=== PATIENT | female | born 1995 | race African-American/Black ===

== ENCOUNTER 2020-12-21 01:55 | Emergency (ER) | payer MEDICAID, OTHER ==
[2020-12-21 02:22] LABS: #Eosinphils 0.1 thou/uL (0.0-0.7); #Lymphocytes 2.3 thou/uL (1.20-3.40); #Monocytes 0.5 thou/uL (0.11-0.59); #Neutrophils 7.3 thou/uL (1.40-6.50); %Basophils 0.3 % (0.0-1.0); %Eosinophils 0.7 % (0.0-10.0); %Lymphocytes 22.8 % (21.0-51.0); %Neutrophils 71.4 % (42.0-75.0); Hemoglobin 10.9 g/dL (12.0-16.0); Mean Corpuscular HGB CONC 31.2 g/dL (32.0-36.0); Mean Corpuscular Hemoglobin 21.8 pg (27.0-31.0); Mean Platelet Volume 8.8 fL (7.4-10.4); Platelet Count 305 thou/uL (130-400); RBC Distribution Width 15.2 % (11.5-14.5); White Blood Cell (WBC) Count 10.3 thou/uL (4.8-10.8)
[2020-12-21 02:27] LABS: PTT 31.3 sec (22.9-36.1); Prothrombin Time 13.6 sec (12.0-14.7)
[2020-12-21 02:40] LABS: Hypochromia SLIGHT = 6-15 cells (100X) (0-5/hpf); MDiff Complete? YES; Microcytosis SLIGHT = 6-15 cells (100X) (0-5/hpf); Platelet Morphology Comment Appears Adequate
[2020-12-21 02:45] LABS: ALT (SGPT) 17 U/L (8-55); AST (SGOT) 18 U/L (5-34); Alkaline Phosphatase 85 U/L (40-110); Anion Gap 16 mmol/L (10-20); BUN (Urea Nitrogen) 10 mg/dL (7.0-18.7); Bilirubin, Total 0.2 mg/dL (0.2-1.2); Calc. Creatinine Clearance 0 mL/min (70-130); Calcium 8.9 mg/dL (7.8-10.44); Carbon Dioxide 20 mmol/L (22-29); Chloride 103 mmol/L (98-107); Globulin 4.3 g/dL (2.4-3.5); Glucose 131 mg/dL (70-105); Potassium 3.5 mmol/L (3.5-5.1); Protein, Total 8.3 g/dL (6.0-8.3); Sodium 135 mmol/L (136-145)
[2020-12-21] MEDS ORDERED: Boostrix 0.5 ML (Tdap) VIAL ONE (03:07)
[2020-12-21] MEDS ORDERED: Bacitracin 1 PK ONE (03:59)
== END 2020-12-21 04:05 | disposition home or self-care (01) ==
LOC: ERS 01:55
DX: S21.231A Puncture wound without foreign body of right back wall of thorax without penetration into thoracic cavity, initial encounter (principal); I10 Essential (primary) hypertension; E11.9 Type 2 diabetes mellitus without complications; Z23 Encounter for immunization; W34.00XA Accidental discharge from unspecified firearms or gun, initial encounter
CPT/HCPCS: 71045; 80053; 83605; 85025; 85610; 85730; 90471; 90715; 94760

== ENCOUNTER 2021-01-30 11:41 | Emergency (ER) | payer OTHER ==
[2021-01-30] MEDS ORDERED: Ibuprofen 800 MG TAB ONE (12:12)
[2021-01-30 15:33] LABS: SARS-CoV-2 PCR by NAA DETECTED (NotDetected)
== END 2021-01-30 13:37 | disposition home or self-care (01) ==
LOC: ERS 11:41
DX: U07.1 COVID-19 (principal); E11.9 Type 2 diabetes mellitus without complications; I10 Essential (primary) hypertension; Z79.84 Long term (current) use of oral hypoglycemic drugs; Z79.899 Other long term (current) drug therapy
CPT/HCPCS: 87635; 87804; 99283; U0003; U0005

== ENCOUNTER 2021-02-02 10:57 | Emergency (ER) | payer OTHER ==
[2021-02-02] MEDS ORDERED: Albuterol 200 PUFF (6.7GM INHALER) ONE (11:58)
== END 2021-02-02 13:33 | disposition home or self-care (01) ==
LOC: ERS 10:57
DX: U07.1 COVID-19 (principal); E11.9 Type 2 diabetes mellitus without complications; I10 Essential (primary) hypertension; Z79.84 Long term (current) use of oral hypoglycemic drugs; Z79.899 Other long term (current) drug therapy
CPT/HCPCS: 71045; 93005

== ENCOUNTER 2024-09-03 08:20 | Emergency (ER) | payer OTHER ==
[2024-09-03] MEDS ORDERED: Acetaminophen 500 MG TAB ONE (09:28)
[2024-09-03] MEDS ORDERED: Albuterol 200 PUFF (6.7GM INHALER) ONE (09:49)
[2024-09-03 09:53] LABS: #Basophils 0.04 10x3/uL (0.0-0.2); %Basophils 0.3 % (0.0-1.0); %Eosinophils 3.4 % (0.0-10.0); %Lymphocytes 19.2 % (21.0-51.0); %Monocytes 7.2 % (0.0-10.0); %Neutrophils 69.4 % (42.0-75.0); Hematocrit 30.8 % (36.0-47.0); Hemoglobin 9.4 g/dL (12.0-16.0); Mean Corpuscular HGB CONC 30.5 g/dL (32.0-36.0); Mean Corpuscular Hemoglobin 21.7 pg (27.0-31.0); Mean Corpuscular Volume 71.1 fL (78.0-98.0); Mean Platelet Volume 9.9 fL (7.4-10.4); Platelet Count 344 10x3/uL (130-400); RBC Distribution Width 16.4 % (11.5-14.5); Red Blood Cell (RBC) Count 4.33 mill/uL (4.20-5.40)
[2024-09-03 10:03] LABS: ALT (SGPT) 27 U/L (8-55); AST (SGOT) 23 U/L (5-34); Albumin 3.4 g/dL (3.5-5.0); Alkaline Phosphatase 86 U/L (40-110); Anion Gap 11 mmol/L (10-20); BUN (Urea Nitrogen) 7 mg/dL (7.0-18.7); Bilirubin, Total 0.3 mg/dL (0.2-1.2); Calc. Creatinine Clearance 0 mL/min (70-130); Calcium 8.9 mg/dL (7.8-10.44); Carbon Dioxide 27 mmol/L (22-29); Chloride 103 mmol/L (98-107); Estimated GFR 97; Globulin 4.5 g/dL (2.4-3.5); Glucose 133 mg/dL (70-105); Potassium 3.6 mmol/L (3.5-5.1); Protein, Total 7.9 g/dL (6.0-8.3); Sodium 137 mmol/L (136-145)
[2024-09-03 10:05] LABS: Troponin I 0.011 ng/mL (< 0.028)
[2024-09-03 10:51] LABS: Microcytosis SLIGHT = 6-15 cells HPF (0-5); Platelet Adequacy Comment Platelets Normal; Polychromasia SLIGHT = 2-3 cells HPF (0-2); Stomatocytes SLIGHT = 2-5 cells HPF (0-1)
[2024-09-03 12:16] LABS: Pregnancy Test - Urine (BHCG) Negative (Negative); Specific Gravity 1.012 (1.002-1.036)
[2024-09-03 15:08] LABS: Pregu Control Background? CLEAR/WHITE (CLR/WHITE); Pregu Control Bar Appear? YES (CONTROL BAR)
== END 2024-09-03 12:15 | disposition home or self-care (01) ==
LOC: ERS 08:20
DX: J20.9 Acute bronchitis, unspecified (principal); D50.9 Iron deficiency anemia, unspecified; E11.9 Type 2 diabetes mellitus without complications; I10 Essential (primary) hypertension
CPT/HCPCS: 36415; 71046; 80053; 81025; 83880; 84484; 85025; 87428; 93005